=== PATIENT | female | born 1990 | race Caucasian/White ===

== ENCOUNTER 2017-09-25 01:58 | Observation (INO) | payer BC, OTHER ==
[2017-09-25] VITALS (9 sets, daily range): BP systolic 108–131; BP diastolic 68–88; PULSE 60–79; TEMP 36.8–37.1; O2SAT 95–100; Ht 177.8 cm; Wt 116.8 kg
[~2017-09-25] VITALS: Ht 177.8 cm; Wt 116.8 kg
[~2017-09-25 01:58] MED LIST: OXYC-57 PO
[2017-09-25] MEDS ORDERED: ALUMINUM/MAGNESIUM SUSP 30 ML UDC PO STA (02:22)
[2017-09-25] MEDS ORDERED: LIDOCAINE HCL 2% VISC SOLN 20 ML UDC PO STA (02:22)
[2017-09-25] MEDS ORDERED: BCPILLS PO (02:40)
[2017-09-25] MEDS ORDERED: ESCI10TA17 PO (02:41)
[2017-09-25] MEDS ORDERED: PROB1TAB16 PO (02:42)
[2017-09-25 02:54] LABS: BASO % 0.4 %; BASO ABS # 0.03 K/uL (0-0.2); EOS % 1.5 %; EOS ABS # 0.13 K/uL (0-0.5); HEMATOCRIT 40.1 % (37-47); HEMOGLOBIN 13.2 g/dL (12.0-16.0); IG# 0.04 K/uL (0.00-0.02); LYMPH % 17.4 %; LYMPH ABS # 1.48 K/uL (1.2-3.4); MEAN CELL VOLUME 88.5 fL (80-100); MEAN CORPUSCULAR HEMOGLOBIN 29.1 pg (25-34); MEAN CORPUSCULAR HGB CONC 32.9 g/dl (32-36); MEAN PLATELET VOLUME 9.4 fL (7.4-10.4); MONO % 10.2 %; MONO ABS # 0.87 K/uL (0.11-0.59); NEUT ABS # 5.95 K/uL (1.4-6.5); PLATELET COUNT 218 K/uL (130-400); RED CELL DISTRIBUTION WIDTH CV 13.1 % (11.5-14.5); RED CELL DISTRIBUTION WIDTH SD 42.3 fL (36.4-46.3)
[2017-09-25 03:11] LABS: ALBUMIN 3.3 gm/dl (3.4-5.0); CALCIUM 9.2 mg/dl (8.5-10.1); CREATININE 0.98 mg/dl (0.60-1.20); POTASSIUM 3.7 mmol/L (3.5-5.1)
[2017-09-25 03:14] LABS: TOTAL PROTEIN 7.6 gm/dl (6.4-8.2)
[2017-09-25] MEDS ORDERED: MoRPHine SULFATE 4 MG/ML 1 ML CARP\\VIAL IV STA (04:22)
[2017-09-25] MEDS ORDERED: ONDANSETRON INJ 2 MG/ML 2 ML VIAL IV STA (04:22)
--- NOTE | 2017-09-25 05:48 | Medical Consult ---
Consultation Date of Consultation: Sep 25, 2017. Attending Physician: Reason for Consultation: RUQ pain History of Present Illness Patient presents to the ED with a 1 week history of RUQ abdominal pain. States her symptoms started Tuesday09/17/17 and have gotten progressively worse since then. Denies any symptoms like this in the past. Denies nausea/vomiting. Denies fever or chills however she does report that she has had a cold recently. Denies use of blood thinning or anticoagulant medications. PSHx significant for appendectomy. Denies any other abdominal surgeries. She has been urinating without difficulty. Reports her stools have been a bit loose lately. Last BM yesterday. Denies blood in stool. Denies problems with anesthesia in the past. WBC WNL. AST 49 and ALT 80. RUQ U/S shows distended gallbladder containing sludge and multiple small gallstones within the phrygian gap, Positive sonographic barrow's sign, No gallbladder wall thickening or pericholecystic fluid. Social History Smoking Status: Never Smoker Allergies Coded Allergies: No Known Allergies (Verified , 09/25/17) Review of Systems Constitutional: No fever, No chills Respiratory: No shortness of breath Cardiovascular: No chest pain Abdomen: + pain (RUQ), + problem reported (loose stools), No nausea, No vomiting Genitourinary - Female: No dysuria Integumentary: No color change Physical Exam Date Time Temp Pulse Resp B/P (MAP) Pulse Ox O2 Delivery O2 Flow Rate FiO2 09/25/17 04:24 75 18 138/76 98 Room Air 09/25/17 02:12 37.0 108 18 132/88 97 Room Air Patient resting in bed speaking with her mother at bedside General Appearance: WD/WN, no apparent distress Head: normocephalic, atraumatic ENT: hearing grossly normal Neck: trachea midline Respiratory/Chest: lungs clear, no respiratory distress, no accessory muscle use Cardiovascular: regular rate, rhythm, no gallop, no murmur Abdomen/GI: normal bowel sounds, no organomegaly, no pulsatile mass, + tenderness (RUQ), + distended (Mild) Neurologic/Psych: alert, normal mood/affect, oriented x 3 Laboratory Results Last 24 Hours Test 09/25/17 02:11 09/25/17 02:30 Urine Color YELLOW Urine Appearance CLEAR Urine pH 7.0 Urine Specific [place] 1.024 Urine Protein NEG Urine Glucose (UA) NEG Urine Ketones NEG Urine Occult Blood NEG Urine Nitrite NEG Urine Bilirubin NEG Urine Urobilinogen NEG Urine Leukocyte Esterase TRACE Urine WBC (Auto) 1-5 /hpf Urine RBC (Auto) 0-4 /hpf Urine Hyaline Casts (Auto) 1-5 /lpf Urine Epithelial Cells (Auto) >30 /lpf Urine Bacteria (Auto) NEG White Blood Count 8.50 K/uL Red Blood Count 4.53 M/uL Hemoglobin 13.2 g/dL Hematocrit 40.1 % Mean Corpuscular Volume 88.5 fL Mean Corpuscular Hemoglobin 29.1 pg Mean Corpuscular Hemoglobin Concent 32.9 g/dl Platelet Count 218 K/uL Mean Platelet Volume 9.4 fL Neutrophils (%) (Auto) 70.0 % Lymphocytes (%) (Auto) 17.4 % Monocytes (%) (Auto) 10.2 % Eosinophils (%) (Auto) 1.5 % Basophils (%) (Auto) 0.4 % Neutrophils # (Auto) 5.95 K/uL Lymphocytes # (Auto) 1.48 K/uL Monocytes # (Auto) 0.87 K/uL Eosinophils # (Auto) 0.13 K/uL Basophils # (Auto) 0.03 K/uL RDW Standard Deviation 42.3 fL RDW Coefficient of Variation 13.1 % Immature Granulocyte % (Auto) 0.5 % Immature Granulocyte # (Auto) 0.04 K/uL Sodium Level 137 mmol/L Potassium Level 3.7 mmol/L Chloride Level 103 mmol/L Carbon Dioxide Level 28 mmol/L Anion Gap 6.0 mmol/L Blood Urea Nitrogen 14 mg/dl Creatinine 0.98 mg/dl Est Creatinine Clear Calc Drug Dose 119.5 ml/min Estimated GFR () 91.6 Estimated GFR (Non- 79.1 BUN/Creatinine Ratio 13.9 Random Glucose 109 mg/dl Calcium Level 9.2 mg/dl Total Bilirubin 0.3 mg/dl Direct Bilirubin 0.1 mg/dl Aspartate Amino Transf (AST/SGOT) 49 U/L Alanine Aminotransferase (ALT/SGPT) 80 U/L Alkaline Phosphatase 83 U/L Total Protein 7.6 gm/dl Albumin 3.3 gm/dl Lipase 322 U/L Human Chorionic Gonadotropin, Qual NEG Assessment & Plan RUQ pain x 1 week, U/S findings consistent with acute calculous cholecystitis Pain controlled, No N/V, afebrile, no leukocytosis, AST 49, ALT 80 Patient will be scheduled for laparoscopic cholecystectomy, possible intraoperative cholangiogram, possible open with Dr. Taylor today. Risks, benefits, alternatives were discussed with the patient and her mother - all questions were answered. Admit-Obs Med/surg, NPO, IV Fluids, IV cefoxitin 2g q6h, IV pain medication PRN, IV Zofran for nausea, SCDs. OR notified. Will Discuss findings with Dr. Taylor this AM Please contact with questions or concerns.
[2017-09-25] MEDS ORDERED: HYDROmorphone INJ 0.5 MG/0.5 ML SYR IV PRN (06:00)
[2017-09-25] MEDS ORDERED: HYDROCODONE/ACETAMOPHEN 5/325MG TAB PO PRN ×3 (06:00→12:00)
[2017-09-25] MEDS ORDERED: HYDROmorphone INJ 1 MG/ML SYR IV PRN ×2 (06:00→10:45)
[2017-09-25] MEDS ORDERED: ACETAMINOPHEN 325 MG TAB PO PRN (06:00)
[2017-09-25] MEDS ORDERED: ONDANSETRON INJ 2 MG/ML 2 ML VIAL IV PRN ×3 (06:00→12:00)
[2017-09-25] MEDS ORDERED: IV FLUIDS COMPLETED PRN (06:15)
[2017-09-25] MEDS: CEFOXITIN IV 2,000 MG in DEXTROSE 5% 50ML 50 ML IV SCH ×3 (07:57→20:54)
[2017-09-25] MEDS ORDERED: SODIUM CHLORIDE 0.9% 1000ML 1,000 ML IV SCH (08:00)
--- NOTE | 2017-09-25 08:20 | DIAGNOSTIC IMAGING REPORT ---
GALLBLADDER-ABD LIMITED HISTORY: 27 years-old Female ruq pain acute right upper quadrant abdominal pain COMPARISON: CT abdomen pelvis 07/16/2007 TECHNIQUE: Multiple real-time sonographic images of the abdominal right upper quadrant were obtained assessing grayscale appearance and color flow FINDINGS: Pancreas is obscured by bowel gas. There is increased echogenicity with poor through transmission of the liver suggesting fatty infiltration. Liver measures up to 22 cm in length. No intrahepatic biliary ductal dilation identified. Common bile duct measures 6 mm, upper limits of normal. Gallbladder is mildly distended measuring up to 12 cm in length with moderate layering gallbladder sludge. Shadowing cholelithiasis noted within the region of the phrygian cap measuring up to 4 mm. Gallbladder wall measures 2 mm in thickness. No pericholecystic fluid collections. Sonographic Chase sign reported as positive. Imaged right kidney is unremarkable without hydronephrosis. IMPRESSION: 1. Mildly distended gallbladder contains sludge and cholelithiasis . No gallbladder wall thickening or pericholecystic fluid collections, however the sonographic Chase sign was reported as positive. Correlate with clinical exam and laboratory values to exclude developing early acute cholecystitis. 2. No biliary ductal dilation. 3. Hepatic steatosis. The above report was generated using voice recognition software. It may contain grammatical, syntax or spelling errors. Electronically signed by: Joshua Garcia M.D. 09/25/2017 8:19 AM Dictated Date/Time: 09/25/2017 8:14 AM
--- NOTE | 2017-09-25 09:26 | History & Physical Bridge Note ---
H&P Re-Evaluation Bridge Note: I have examined the patient, reviewed the History & Physical and in the interval since the performance of the History & Physical I have noted the following changes of clinical significance: No changes noted
[2017-09-25] MEDS ORDERED: BUPIVACAINE/EPINEPHRINE 0.5% MPF 1:200,000 30 ML VIAL ONE (09:46)
[2017-09-25] MEDS ORDERED: ROCURONIUM BROMIDE 10 MG/ML 5 ML VIAL IV ONE ×3 (09:59→11:15)
[2017-09-25] MEDS ORDERED: PROPOFOL IV EMULSION 10 MG/ML 20 ML VIAL IV ONE (09:59)
[2017-09-25] MEDS ORDERED: LIDOCAINE HCL 2% 2 ML VIAL (20MG/ML) ONE (09:59)
[2017-09-25] MEDS ORDERED: DEXAMETHASONE SOD INJ 4 MG/ML VIAL ONE (09:59)
[2017-09-25] MEDS ORDERED: ONDANSETRON INJ 2 MG/ML 2 ML VIAL ONE (09:59)
[2017-09-25] MEDS ORDERED: FENTANYL CITRATE INJ 50 MCG/1 ML 2 ML VIAL ONE ×3 (09:59→10:51)
[2017-09-25] MEDS ORDERED: MIDAZOLAM HCL 1 MG/ML 2ML VIAL ONE (10:00)
[2017-09-25] MEDS ORDERED: LABETALOL HCL IV 5 MG/ML 20ML IV PRN (10:45)
[2017-09-25] MEDS ORDERED: ATROPINE SULFATE 0.1 MG/ML 5ML SYR IV PRN (10:45)
[2017-09-25] MEDS ORDERED: MEPERIDINE HCL 25 MG/ML CARP IV PRN (10:45)
[2017-09-25] MEDS ORDERED: EpHEDrine SULFATE INJ 50 MG/ML AMP IV PRN (10:45)
[2017-09-25] MEDS ORDERED: NEOSTIGMINE METHYLSULFATE 5 MG/5 ML SYR ONE (11:35)
[2017-09-25] MEDS ORDERED: LABETALOL HCL IV 5 MG/ML 20ML IV ONE (11:35)
[2017-09-25] MEDS ORDERED: GLYCOPYRROLATE INJ 0.2 MG/ML VIAL ONE ×2 (11:35→11:42)
--- NOTE | 2017-09-25 11:42 | [facility] Post Operative Brief Note ---
Immediate Operative Summary Operative Date Sep 25, 2017. Pre-Operative Diagnosis Acute Cholecystitis Post-Operative Diagnosis Same as preop Procedure(s) Performed Laparoscopic Cholecystectomy Surgeon Dr. Taylor Academic Affairs Vice President Surgeon(s) Veronica Qiu PA-C Estimated Blood Loss 30 ml Findings Consistent with Post-Op Diagnosis Specimens A. Gall Bladder and Contents Anesthesia Type General Complication(s) none
[2017-09-25] MEDS ORDERED: MoRPHine SULFATE 4 MG/ML 1 ML CARP\\VIAL IV PRN (12:00)
[2017-09-25] MEDS ORDERED: HYDR-5688 PO (12:00)
[2017-09-25] MEDS ORDERED: MoRPHine SULFATE 2 MG/ML CARP IV PRN ×2 (12:00)
--- NOTE | 2017-09-25 12:02 | Discharge Instructions ---
Discharge Instructions Date of Service Sep 25, 2017. Admission Reason for Admission: Acute Calculous Cholecystitis Discharge Discharge Diagnosis / Problem: Acute Calculous Cholecystitis Discharge Goals Goal(s): Decrease discomfort, Improve function Activity Recommendations Activity Limitations: as noted below Lifting Limitations: no more than 10 pounds Exercise/Sports Limitations: until after follow-up appointment May Resume Sexual Activity: after follow-up appointment Shower/Bathe: no limitations Driving or Machine Use: resume 1 day after discharge . Instructions / Follow-Up Instructions / Follow-Up Please follow-up with Dr. Taylor in the General Surgery Clinic located at [address] [place], [place] [address]. Please call the office at [phone] to make this appointment. Please call the office with any questions or concerns. Current Hospital Diet Patient's current hospital diet: Clear Liquid Diet Discharge Diet Recommended Diet: Regular Diet Procedures Procedures Performed: Laparoscopic Cholecystectomy Pending Studies Studies pending at discharge: yes List of pending studies: Pathology report. Medical Emergencies . Who to Call and When: Medical Emergencies: If at any time you feel your situation is an emergency, please call 911 immediately. . Non-Emergent Contact Non-Emergency issues call your: Primary Care Provider, Surgeon Call Non-Emergent contact if: temperature is above 101.5, your pain is not controlled, wound has increased drainage, wound has increased redness . "Provider Documentation" section prepared by Veronica Qiu. . VTE Core Measure Inpt VTE Proph given/why not?: SCD's
[2017-09-25] MEDS: FENTANYL CITRATE INJ 50 MCG/1 ML 2 ML VIAL IV PRN ×2 (12:08→12:13)
--- NOTE | 2017-09-25 12:28 | [facility] Operative Report ---
Operative Report Operative Date Sep 25, 2017. Pre-Operative Diagnosis Acute Cholecystitis Post-Operative Diagnosis Same as preop Procedure(s) Performed Laparoscopic Cholecystectomy Surgeon Dr. Taylor Reconcilement Clerk Surgeon(s) Veronica Qiu PA-C Estimated Blood Loss 30 ml Findings acute cholecystitis Specimens A. Gall Bladder and Contents Anesthesia get Complication(s) None Disposition Recovery Room / PACU Description of Procedure After informed consent was obtained the patient was taken the operating room and placed in a supine position. After successful intubation the abdomen was sterilely prepped and draped in usual fashion. We made a periumbilical incision with an 11 blade scalpel and carried this down through the soft tissue using electrocautery. Anterior rectus fascia was opened using electrocautery and 2 #0 Vicryl stay sutures were placed. Peritoneum was entered using blunt finger penetration and a finger sweep was performed. A 12 mm Gardner trocar was placed and the abdomen was insufflated 18 mmHg. The laparoscope was inserted and the abdomen was examined in 360. Everything appeared normal other than an acutely inflamed gallbladder. We placed a subxiphoid 5 mm port and 2 right upper quadrant 5 mm ports under direct vision. Patient was placed reverse Trendelenburg position slightly airplaned to the left. We drained the gallbladder with a gallbladder needle about 30-40 mL of dark sludge-like bile. We were then able to grab the gallbladder and elevate it superiorly and laterally. I used a [place] dissector to take down adhesions around the gallbladder neck. Eventually I was able to identify the cystic duct skeletonize it ,clipped it twice proximally once distally and transected it. In similar fashion the cystic artery was skeletonized clipped and divided as well. The gallbladder was removed from the gallbladder fossa. we did encounter small hole from the the drainage area of the needle as well as a made a small hole while taking it off the liver. eventually we had it removed and placed into an Endo Catch bag. Several small bleeding points on the fossa were controlled using electrocautery. A thorough irrigation was performed. We continued to irrigate until all the fluid was clear. A final look around the abdomen showed no other gross abnormalities. At the end of the procedure there was adequate hemostasis and no evidence of any bile leaks. The gallbladder and all the trochars were removed and the abdomen was desufflated. The fascia of the camera port was closed using 0 Vicryl in a figure 8 fashion. All the wounds were irrigated and closed using 4-0 Monocryl. Marcaine was injected around them for postoperative analgesia and skin glue used as a dressing. The patient was awakened extubated and transferred recovery in stable condition. My physician's title i assistant was present throughout the entire case. She helped prepped the patient. She helped with retraction to place the port as well as help retract the gallbladder throughout the dissection. She also helped with wound closure and dressing placement at the end of the case I attest to the content of the Intraoperative Record and any orders documented therein. Any exceptions are noted below.
--- NOTE | 2017-09-25 13:01 | Anesthesiology Progress Note ---
Anesthesia Post Op Note Date & Time Sep 25, 2017 at 13:01 Vital Signs Pain Intensity: 3 Vital Signs Past 12 Hours Date Time Temp Pulse Resp B/P (MAP) Pulse Ox O2 Delivery O2 Flow Rate FiO2 09/25/17 12:40 60 18 138/83 97 Nasal Cannula 3 09/25/17 12:30 36.5 73 16 142/79 97 Nasal Cannula 3 09/25/17 12:20 66 16 139/83 97 Nasal Cannula 3 09/25/17 12:10 79 16 148/85 97 Oxymask 5 09/25/17 12:00 82 16 151/80 97 Oxymask 5 09/25/17 11:56 36.1 84 16 154/80 97 Oxymask 5 09/25/17 08:21 Room Air 09/25/17 07:09 37.1 76 16 116/76 (89) 96 Room Air 09/25/17 06:50 100 Room Air 09/25/17 06:44 82 18 131/70 100 Room Air 09/25/17 04:24 75 18 138/76 98 Room Air 09/25/17 02:12 37.0 108 18 132/88 97 Room Air Notes Mental Status: alert / awake / arousable, participated in evaluation Pt Amnestic to Procedure: Yes Nausea / Vomiting: adequately controlled Pain: adequately controlled Airway Patency, RR, SpO2: stable & adequate BP & HR: stable & adequate Hydration State: stable & adequate Anesthetic Complications: no major complications apparent
[2017-09-25] MEDS: LACTATED RINGER'S 1000ML 1,000 ML IV SCH ×2 (15:44→18:56)
[2017-09-25] MEDS: HYDROCODONE/ACETAMOPHEN 5/325MG TAB PO PRN ×2 (15:48→23:46)
--- NOTE | 2017-09-25 21:29 | EMERGENCY ROOM VISIT NOTE ---
History First contact with patient: 02:18 Chief Complaint: ABDOMINAL PAIN Stated Complaint: STOMACH PAIN Nursing Triage Summary: PT presents with bilateral upper quadrant X 2 weeks. PT states "it gets worse when I lay down and at bedtime" PT has nausea with vomiting at times. Denies fever/chills. PT also has diarrhea. History of Present Illness The patient is a 27 year old female who presents to the Emergency Room with complaints of epigastric right upper quadrant pain that has been intermittent for the past few days. Patient states at night when she lays down to go to bed is when the symptoms began. She is present pain as discomfort, 5 out of 10. Nothing makes it better or worse. Patient does complain of some nausea. Patient denies diarrhea, black or blood in her stool, chest pain, dyspnea, sore throat, cough, throat discomfort. She still has her gallbladder. Review of Systems See HPI for pertinent positives & negatives. A total of 10 systems reviewed and were otherwise negative. Past Medical/Surgical History Medical Problems: (1) Acute calculous cholecystitis Appendectomy Social History Smoking Status: Never Smoker Smokeless Tobacco Use: No Drug Use: none Current/Historical Medications Scheduled Control Pills ( Control Pills), 1 TAB PO DAILY Escitalopram (Lexapro), 10 MG PO DAILY Probiotic Product (Probiotic), 1 TAB PO DAILY Scheduled PRN Hydrocodone/Acetaminophen 5MG/325MG (Mathews 5MG/325MG), 1-2 TABLETS PO Q4 PRN for Pain Physical Exam Vital Signs Date Time Temp Pulse Resp B/P (MAP) Pulse Ox O2 Delivery O2 Flow Rate FiO2 09/25/17 04:24 75 18 138/76 98 Room Air 09/25/17 02:12 37.0 108 18 132/88 97 Room Air Physical Exam VITALS: Vitals are noted on the nurse's note and reviewed by myself. Vital signs stable. GENERAL: Pleasant female, in no acute distress, nondiaphoretic, well-developed well-nourished. SKIN: The skin was without rashes, erythema, edema, or bruising. There is no tenting of the skin. Capillary reflex less than 2 seconds. HEAD: Normocephalic atraumatic. EARS: External auditory canals clear, tympanic membranes pearly parikh without erythema or effusion bilaterally. EYES: Pupils equal round and reactive to light and accommodation. Conjunctivae without injection, sclerae without icterus. Extraocular movements intact. NOSE: Patent, turbinates without inflammation or discharge. MOUTH: Mucous membranes moist. Pharynx without erythema or exudate. Uvula midline. Airway patent. Tongue does not deviate. NECK: Supple without nuchal rigidity. No lymphadenopathy. No thyromegaly. Cervical spine is nontender. No JVD. HEART: Regular rate and rhythm without murmurs gallops or rubs. LUNGS: Clear to auscultation bilaterally without wheezes, rales or rhonchi. No dullness to percussion. No retractions or accessory muscle use. ABDOMEN: Positive bowel sounds x 4. Normal tympanic percussion. Soft, tender to palpation epigastric region, no CVA tenderness, without masses or organomegaly. No guarding or rebound tenderness. MUSCULOSKELETAL: No muscle atrophy, erythema, or edema noted. NEURO: Patient was alert and oriented to person place and time. Normal sensation to light and sharp touch. No focal neurological deficits. Medical Decision & Procedures Laboratory Results 09/25/17 02:30 Red Blood Count 4.53, Mean Corpuscular Volume 88.5, Mean Corpuscular Hemoglobin 29.1, Mean Corpuscular Hemoglobin Concent 32.9, Mean Platelet Volume 9.4, Neutrophils (%) (Auto) 70.0, Lymphocytes (%) (Auto) 17.4, Monocytes (%) (Auto) 10.2, Eosinophils (%) (Auto) 1.5, Basophils (%) (Auto) 0.4, Neutrophils # (Auto ) 5.95, Lymphocytes # (Auto) 1.48, Monocytes # (Auto) 0.87, Eosinophils # (Auto ) 0.13, Basophils # (Auto) 0.03 09/25/17 02:30 Test 09/25/17 02:11 09/25/17 02:30 Urine Color YELLOW Urine Appearance CLEAR (CLEAR) Urine pH 7.0 (4.5-7.5) Urine Specific [place] 1.024 (1.000-1.030) Urine Protein NEG (NEG) Urine Glucose (UA) NEG (NEG) Urine Ketones NEG (NEG) Urine Occult Blood NEG (NEG) Urine Nitrite NEG (NEG) Urine Bilirubin NEG (NEG) Urine Urobilinogen NEG (NEG) Urine Leukocyte Esterase TRACE (NEG) Urine WBC (Auto) 1-5 /hpf (0-5) Urine RBC (Auto) 0-4 /hpf (0-4) Urine Hyaline Casts (Auto) 1-5 /lpf (0-5) Urine Epithelial Cells (Auto) >30 /lpf (0-5) Urine Bacteria (Auto) NEG (NEG) White Blood Count 8.50 K/uL (4.8-10.8) Red Blood Count 4.53 M/uL (4.2-5.4) Hemoglobin 13.2 g/dL (12.0-16.0) Hematocrit 40.1 % (37-47) Mean Corpuscular Volume 88.5 fL (80-100) Mean Corpuscular Hemoglobin 29.1 pg (25-34) Mean Corpuscular Hemoglobin Concent 32.9 g/dl (32-36) Platelet Count 218 K/uL (130-400) Mean Platelet Volume 9.4 fL (7.4-10.4) Neutrophils (%) (Auto) 70.0 % Lymphocytes (%) (Auto) 17.4 % Monocytes (%) (Auto) 10.2 % Eosinophils (%) (Auto) 1.5 % Basophils (%) (Auto) 0.4 % Neutrophils # (Auto) 5.95 K/uL (1.4-6.5) Lymphocytes # (Auto) 1.48 K/uL (1.2-3.4) Monocytes # (Auto) 0.87 K/uL (0.11-0.59) Eosinophils # (Auto) 0.13 K/uL (0-0.5) Basophils # (Auto) 0.03 K/uL (0-0.2) RDW Standard Deviation 42.3 fL (36.4-46.3) RDW Coefficient of Variation 13.1 % (11.5-14.5) Immature Granulocyte % (Auto) 0.5 % Immature Granulocyte # (Auto) 0.04 K/uL (0.00-0.02) Anion Gap 6.0 mmol/L (3-11) Est Creatinine Clear Calc Drug Dose 119.5 ml/min Estimated GFR () 91.6 Estimated GFR (Non- 79.1 BUN/Creatinine Ratio 13.9 (10-20) Calcium Level 9.2 mg/dl (8.5-10.1) Total Bilirubin 0.3 mg/dl (0.2-1) Direct Bilirubin 0.1 mg/dl (0-0.2) Aspartate Amino Transf (AST/SGOT) 49 U/L (15-37) Alanine Aminotransferase (ALT/SGPT) 80 U/L (12-78) Alkaline Phosphatase 83 U/L (45-117) Total Protein 7.6 gm/dl (6.4-8.2) Albumin 3.3 gm/dl (3.4-5.0) Lipase 322 U/L (73-393) Human Chorionic Gonadotropin, Qual NEG (NEG) Medications Administered Medications (Trade) Dose Ordered Sig/Trace Route Start Time Stop Time Status Last Admin Dose Admin Lidocaine HCl (Viscous Lidocaine 2% Soln) 10 ml NOW STAT PO 09/25/17 02:22 09/25/17 02:24 DC 09/25/17 02:22 10 ML Al Hydroxide/Mg Hydroxide (Maalox Susp) 30 ml NOW STAT PO 09/25/17 02:22 09/25/17 02:24 DC 09/25/17 02:22 30 ML Morphine Sulfate (MoRPHine SULFATE INJ) 4 mg NOW STAT IV 09/25/17 04:22 09/25/17 04:23 DC 09/25/17 04:31 4 MG Ondansetron HCl (Zofran Inj) 4 mg NOW STAT IV 09/25/17 04:22 09/25/17 04:23 DC 09/25/17 04:31 4 MG ED Course Prior records/ancillary studies reviewed. Triage Nursing notes reviewed. Additional history obtained from family The patient's history was concerning for abdominal pain. Differential diagnosis: Etiologies such as appendicitis, diverticulitis, PUD, biliary pathology, UTI, pancreatitis, obstruction, mesenteric ischemia, aortic pathology, infections, inflammatory bowel disease, renal colic, as well as others were entertained. Physical examination findings: As above. ER treatment provided: GI cocktail On reassessment the patient felt better. Diagnostics interpreted by me: The labs revealed stable H&H. Mild LFT elevation. No leukocytosis Imaging studies: Ultrasound concerning for possible acute cholecystitis Consultation: I spoke with the surgical PACarlos and will evaluate the patient and case was reviewed with her. He states he well write for the antibiotic orders if needed. Exam and history seem consistent with acute cholecystitis. Patient was evaluated by surgery. She is placed nothing by mouth.. She felt much better. Her pain was under control. By the evaluation outlined above emergent etiologies such as appendicitis, diverticulitis, PUD, UTI, pancreatitis, obstruction, mesenteric ischemia, aortic pathology, inflammatory bowel disease, renal colic, as well as others were deemed relatively unlikely. The pt informed about the findings as listed above. All questions were answered and pleased with the treatment. Case reviewed by attending Medical Decision As above Medication Reconcilliation Current Medication List: was personally reviewed by me Blood Pressure Screening Patient's blood pressure: Normal blood pressure Impression Primary Impression: Acute cholecystitis Departure Information Dispostion Being Evaluated By Hospitalist Condition GOOD Prescriptions Hydrocodone/Acetaminophen 5MG/325MG (Mathews 5MG/325MG) Tab 1-2 TABLETS PO Q4 Y for Pain for 3 Days, #30 TAB Prov: Veronica Qiu PA-C 09/25/17 Referrals Kamila Joe (PCP) Patient Instructions My [facility] Additional Instructions
[2017-09-26] MEDS: LACTATED RINGER'S 1000ML 1,000 ML IV SCH ×2 (01:45→08:00)
[2017-09-26] MEDS: CEFOXITIN IV 2,000 MG in DEXTROSE 5% 50ML 50 ML IV SCH (01:45)
[2017-09-26 07:02] VITALS: BP 116/77; PULSE 72; TEMP 36.9; O2SAT 97
[2017-09-26 07:38] LABS: BASO % 0.1 %; BASO ABS # 0.01 K/uL (0-0.2); EOS % 1.1 %; HEMATOCRIT 36.6 % (37-47); HEMOGLOBIN 11.9 g/dL (12.0-16.0); IG# 0.03 K/uL (0.00-0.02); LYMPH % 26.3 %; MEAN CELL VOLUME 90.4 fL (80-100); MEAN CORPUSCULAR HEMOGLOBIN 29.4 pg (25-34); MEAN CORPUSCULAR HGB CONC 32.5 g/dl (32-36); MEAN PLATELET VOLUME 9.6 fL (7.4-10.4); MONO % 8.9 %; MONO ABS # 0.78 K/uL (0.11-0.59); NEUT % 63.3 %; NEUT ABS # 5.52 K/uL (1.4-6.5); PLATELET COUNT 211 K/uL (130-400); RED CELL DISTRIBUTION WIDTH CV 13.3 % (11.5-14.5); RED CELL DISTRIBUTION WIDTH SD 44.2 fL (36.4-46.3); WHITE BLOOD COUNT 8.74 K/uL (4.8-10.8)
[2017-09-26] MEDS: HYDROCODONE/ACETAMOPHEN 5/325MG TAB PO PRN ×2 (07:53→13:30)
[2017-09-26 08:07] LABS: ALBUMIN 2.7 gm/dl (3.4-5.0); CALCIUM 8.7 mg/dl (8.5-10.1); CREATININE 0.83 mg/dl (0.60-1.20)
[2017-09-26 08:09] LABS: TOTAL PROTEIN 6.3 gm/dl (6.4-8.2)
[2017-09-26] MEDS ORDERED: ESCITALOPRAM OXALATE 10 MG TAB PO SCH (09:00)
[2017-09-26] MEDS ORDERED: LACTOBACILLUS ACIDOPHILUS (FLORANEX) TAB PO SCH (09:00)
--- NOTE | 2017-09-26 10:14 | Surgery Progress Note ---
Surgery Progress Note Date of Service Sep 26, 2017. Subjective Post OP Day: 1 + feeling well, + ambulating, + flatus, + pain controlled, No bowel movement, No nausea, No vomiting In room with family - feeling well, no new concerns or complaints overnight. Objective Vital Signs: Date Time Temp Pulse Resp B/P (MAP) Pulse Ox O2 Delivery O2 Flow Rate FiO2 09/26/17 07:30 Room Air 09/26/17 07:02 36.9 72 16 116/77 (90) 97 Room Air 09/25/17 23:45 Room Air 09/25/17 23:05 36.8 75 18 108/68 (81) 96 Room Air 09/25/17 19:00 37.0 79 18 125/83 (97) 97 Room Air 09/25/17 15:42 Room Air 09/25/17 15:30 36.8 75 16 131/81 (98) 95 Room Air 09/25/17 14:04 64 16 125/88 (100) 98 Room Air 09/25/17 13:42 96 Nasal Cannula 3.0 09/25/17 13:26 65 16 126/85 (99) 99 3.0 09/25/17 13:00 37.0 60 18 130/85 (100) 98 3.0 09/25/17 12:40 60 18 138/83 97 Nasal Cannula 3 09/25/17 12:30 36.5 73 16 142/79 97 Nasal Cannula 3 09/25/17 12:20 66 16 139/83 97 Nasal Cannula 3 09/25/17 12:10 79 16 148/85 97 Oxymask 5 09/25/17 12:00 82 16 151/80 97 Oxymask 5 09/25/17 11:56 36.1 84 16 154/80 97 Oxymask 5 General Appearance: WD/WN, no apparent distress Abdomen: non distended, soft, + pertinent finding (trocar sites healing well. ) Incision(s): clean, dry, intact, no erythema, no drainage, findings (+Dermabond , dressing changed and new dressing placed. ) Laboratory Results: Results Past 24 Hours Test 09/26/17 07:00 Range/Units White Blood Count 8.74 4.8-10.8 K/uL Red Blood Count 4.05 4.2-5.4 M/uL Hemoglobin 11.9 12.0-16.0 g/dL Hematocrit 36.6 37-47 % Mean Corpuscular Volume 90.4 80-100 fL Mean Corpuscular Hemoglobin 29.4 25-34 pg Mean Corpuscular Hemoglobin Concent 32.5 32-36 g/dl Platelet Count 211 130-400 K/uL Mean Platelet Volume 9.6 7.4-10.4 fL Neutrophils (%) (Auto) 63.3 % Lymphocytes (%) (Auto) 26.3 % Monocytes (%) (Auto) 8.9 % Eosinophils (%) (Auto) 1.1 % Basophils (%) (Auto) 0.1 % Neutrophils # (Auto) 5.52 1.4-6.5 K/uL Lymphocytes # (Auto) 2.30 1.2-3.4 K/uL Monocytes # (Auto) 0.78 0.11-0.59 K/uL Eosinophils # (Auto) 0.10 0-0.5 K/uL Basophils # (Auto) 0.01 0-0.2 K/uL RDW Standard Deviation 44.2 36.4-46.3 fL RDW Coefficient of Variation 13.3 11.5-14.5 % Immature Granulocyte % (Auto) 0.3 % Immature Granulocyte # (Auto) 0.03 0.00-0.02 K/uL Sodium Level 139 136-145 mmol/L Potassium Level 4.0 3.5-5.1 mmol/L Chloride Level 104 98-107 mmol/L Carbon Dioxide Level 26 21-32 mmol/L Anion Gap 9.0 3-11 mmol/L Blood Urea Nitrogen 8 7-18 mg/dl Creatinine 0.83 0.60-1.20 mg/dl Est Creatinine Clear Calc Drug Dose 141.1 ml/min Estimated GFR () 112.0 Estimated GFR (Non- 96.6 BUN/Creatinine Ratio 9.3 10-20 Random Glucose 92 70-99 mg/dl Calcium Level 8.7 8.5-10.1 mg/dl Total Bilirubin 0.4 0.2-1 mg/dl Direct Bilirubin 0.1 0-0.2 mg/dl Aspartate Amino Transf (AST/SGOT) 79 15-37 U/L Alanine Aminotransferase (ALT/SGPT) 110 12-78 U/L Alkaline Phosphatase 66 45-117 U/L Total Protein 6.3 6.4-8.2 gm/dl Albumin 2.7 3.4-5.0 gm/dl Assessment & Plan POD #1 s/p Lap Carlita Patient doing well- pain controlled, tolerating regular diet. +flatus, no BM yet. Ok for discharge today- will be going home with sister. Discharge after lunch. Both verbal and written instructions provided. Work note provided and on chart. Patient to follow-up with Dr. Taylor in the [facility] in 1-2 weeks.
[2017-09-26 13:20] VITALS: BP 116/77; PULSE 72; TEMP 36.9; O2SAT 97
--- NOTE | 2017-09-28 10:44 | Discharge Summary ---
Discharge Summary Date of Service Sep 28, 2017. Admission Date/Reason Sep 25, 2017 at 05:50 Acute Calculous Cholecystitis. Discharge Date/Disposition Sep 26, 2017 Home Diagnosis Principal Diagnosis: Acute Calculous Cholecystitis Procedure(s) Performed Laparoscopic Cholecystectomy Medication Reconciliation New Medications: Hydrocodone/Acetaminophen 5MG/325MG ([place] 5MG/325MG) Tab 1-2 TABLETS PO Q4 PRN for Pain for 3 Days, #30 TAB Continued Medications: Control Pills ( Control Pills) Tab 1 TAB PO DAILY, TAB Escitalopram (Lexapro) 10 Mg Tab 10 MG PO DAILY, TAB Probiotic Product (Probiotic) 1 Tab Tab 1 TAB PO DAILY Admission Physical Exam As per Admitting History & Physical. Hospital Course Ms. Patel is a 27-year-old female who presented to [facility] ED with 1 week history of RUQ pain. Patient reported to ED after pain continued to become progressively worse. Previous abdominal surgeries include Lap Appendectomy. RUQ U/S shows distended gallbladder containing sludge and multiple small gallstones within the phrygian gap, Positive sonographic Chase's sign, No gallbladder wall thickening or pericholecystic fluid. LFTs were elevated on admission. Normal WBC. Patient was taken to OR for Laparoscopic Cholecystectomy with Dr. Taylor. Pre-Op Diagnosis- Patient was kept overnight for observation. POD#1- Patient did well overnight. Afebrile. Vital signs stable. Tolerated regular diet. Passing gas. Pain controlled. Ok for discharge. Both verbal and written instructions provided to patient. Patient to stay with sister who is in medical school. Patient to follow-up with Dr. Taylor in the General Surgery Clinic in 1-2 weeks. Return precautions discussed. Discharge Instructions Please refer to the electronic Patient Visit Report (Discharge Instructions) for additional information.
== END 2017-09-26 13:50 | disposition home or self-care (01) ==
LOC: C.EDB 01:59 → C.3E 05:50 → ENRESERV 06:34
PROVIDERS: ADMIT Surgery; ATTEND Surgery
DX: K80.10 Calculus of gallbladder with chronic cholecystitis without obstruction (principal); F41.9 Anxiety disorder, unspecified; F32.9 Major depressive disorder, single episode, unspecified; Z90.89 Acquired absence of other organs; Z79.3 Long term (current) use of hormonal contraceptives